=== PATIENT | female | born 1955 | race Caucasian/White ===

== ENCOUNTER → 2018-08-18 | Outpatient (CLI) | payer BC ==
[~2018-08-18] MED LIST: CRESTOR20 MG PO; HUMALOG100 UNIT/1 SQ; LISINOPRIL10 MG PO; PROZAC40 MG PO; VALTREX 500 MG500 MG PO; VITAMIN D-32000 UNIT PO
== END ==
LOC: MRI 14:43
DX: M47.816 Spondylosis without myelopathy or radiculopathy, lumbar region (principal); M48.061 Spinal stenosis, lumbar region without neurogenic claudication